=== PATIENT | female | born 1970 | race Asian ===

== ENCOUNTER 2025-06-06 16:18 | Emergency (ER) | payer BC ==
[~2025-06-06] VITALS: Ht 165.1 cm; Wt 64.9 kg
[2025-06-06 16:31] VITALS: O2SAT 100
[2025-06-06 18:22] LABS: BASOPHILS % 0.1 % (0.0-2.0); EOSINOPHILS % 1.4 % (0.0-5.0); HEMATOCRIT. 36.2 % (36.0-48.0); HEMOGLOBIN. 12.1 g/dL (12.0-16.0); LYMPHOCYTES % 29.4 % (20.0-50.0); MEAN PLATELET VOLUME 7.7 fl (7.4-10.4); MONOCYTES % 7.2 % (2.0-8.0); NEUTROPHILS % 61.9 % (40.0-76.0); PLATELET 183 x1000/uL (130-400); RED BLOOD CELL COUNT 4.18 mill/uL (4.2-5.4); RED CELL DISTRIBUTION WIDTH 13.6 % (11.6-14.6)
[2025-06-06 18:29] LABS: CREATININE 0.8 mg/dL (0.6-1.0); UREA NITROGEN BLOOD 14 mg/dL (9-23)
[2025-06-06 18:30] LABS: INR 0.9; PROTEIN TOTAL 6.8 g/dL (6.0-8.3)
[2025-06-06 18:31] LABS: ASPARTATE AMINOTRANSFERASE 17 IU/L (<34); BILIRUBIN DIRECT < 0.1 mg/dL (<=3.0); BILIRUBIN TOTAL 0.4 mg/dL (0.1-1.0)
[2025-06-06 19:03] VITALS: BP 116/69; PULSE 70; RESP 13; TEMP 36.8; O2SAT 99
== END 2025-06-06 19:21 | disposition short-term general hospital (02) ==
LOC: ER 16:18
DX: H33.22 Serous retinal detachment, left eye (principal); I10 Essential (primary) hypertension; Z79.899 Other long term (current) drug therapy; Z98.890 Other specified postprocedural states
CPT/HCPCS: 36415; 70480; 80048; 80076; 85025; 86850; 86900; 93005; 99291